=== PATIENT | female | born 1985 | race Caucasian/White ===

== ENCOUNTER 2018-08-09 18:33 | Emergency (ER) | payer OTHER ==
[2018-08-09 18:40] VITALS: BP 108/61
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
== END 2018-08-09 19:00 | disposition home or self-care (01) ==
LOC: ER 18:33
DX: M54.2 Cervicalgia (principal); V49.60XA Unspecified car occupant injured in collision with unspecified motor vehicles in traffic accident, initial encounter
CPT/HCPCS: 99284